=== PATIENT | female | born 1930 | race American Indian/Alaskan Native ===

== ENCOUNTER 2016-06-24 06:16 | Emergency (ER) | payer MEDICARE, OTHER ==
[2016-06-24] MEDS ORDERED: ULTRAM ONE (06:44)
[2016-06-24 06:48] VITALS: BP 122/63
[2016-06-24] MEDS ORDERED: ULTRAM PO ONE (06:54)
[2016-06-24] MEDS ORDERED: TYLENOL PO ONE (07:32)
--- NOTE | 2016-06-24 07:35 | Emergency Department Report ---
ED ENT HPI - General Chief complaint: Dental/Oral Stated complaint: R EAR PAIN Time Seen by Provider: 06/24/16 07:20 Source: patient, EMS Mode of arrival: Stretcher Limitations: No Limitations - History of Present Illness Initial comments: 86F multiple medical problems hypertension, anxiety presents with complaint of right ear pain since yesterday. Patient complaining of sensation of pressure in the ear. Denies any fever chills nausea or vomiting. Because patient is elderly and stated she could not get a ride she called EMS to come to hospital for treatment. 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 States she has not put anything inside of her ear lately. MD complaint: ear pain Onset/Timin -: days(s) Location: R ear Severity: moderate Severity scale (0 -10): 7 Quality: aching - Related Data Home Medications Medication Instructions Recorded Confirmed Last Taken ALPRAZolam [Xanax TAB] 1 mg PO BID 08/19/14 02/06/16 Unknown Latanoprost 0.005% [Xalatan 0.005%] 1 drop OP QPM 08/19/14 02/06/16 Unknown Levothyroxine [Synthroid] 125 mcg PO QAM 08/19/14 02/06/16 Unknown Lisinopril [Zestril] 10 mg PO QDAY 08/19/14 02/06/16 Unknown Pantoprazole [Protonix] 40 mg PO QDAY 08/19/14 02/06/16 Unknown Sennosides [Senna Laxative] 8.6 mg PO QDAY 08/19/14 02/06/16 Unknown Simvastatin 20 mg PO QHS 08/19/14 02/06/16 Unknown traMADol [Ultram] 50 mg PO Q8HR PRN 08/19/14 02/06/16 Unknown Baclofen [Lioresal] 10 mg PO BID 02/06/16 02/06/16 02/05/16 1000 HYDROcodone/APAP 10-325 [[place] 1 each PO Q6HR PRN 02/06/16 02/06/16 02/05/16 10: 00 10/325] Previous Rx's Medication Instructions Recorded Last Taken Type Ketorolac [Toradol] 10 mg PO Q6H PRN #12 tablet 08/19/14 Unknown Rx Meclizine [Antivert] 25 mg PO TID PRN #30 tablet 08/19/14 Unknown Rx Acetaminophen [Acetaminophen TAB] 500 mg PO Q6HR PRN #25 tablet 06/24/16 Unknown Rx Amoxicillin [Amoxicillin TAB] 875 mg PO BID #14 tablet 06/24/16 Unknown Rx Neomy/Polymyx B/Hc (Otic) Soln 4 drops OTIC TID #1 bottle 06/24/16 Unknown Rx [Cortisporin (Otic) Soln] traMADol [Ultram] 50 mg PO Q6HR PRN #10 tablet 06/24/16 Unknown Rx Allergies Allergy/AdvReac Type Severity Reaction Status Date / Time codeine Allergy Vomiting Verified 04/11/14 05:57 ED Dental HPI - General Chief complaint: Dental/Oral Stated complaint: R EAR PAIN Time Seen by Provider: 06/24/16 07:20 Source: patient, EMS Mode of arrival: Stretcher Limitations: No Limitations - Related Data Home Medications Medication Instructions Recorded Confirmed Last Taken ALPRAZolam [Xanax TAB] 1 mg PO BID 08/19/14 02/06/16 Unknown Latanoprost 0.005% [Xalatan 0.005%] 1 drop OP QPM 08/19/14 02/06/16 Unknown Levothyroxine [Synthroid] 125 mcg PO QAM 08/19/14 02/06/16 Unknown Lisinopril [Zestril] 10 mg PO QDAY 08/19/14 02/06/16 Unknown Pantoprazole [Protonix] 40 mg PO QDAY 08/19/14 02/06/16 Unknown Sennosides [Senna Laxative] 8.6 mg PO QDAY 08/19/14 02/06/16 Unknown Simvastatin 20 mg PO QHS 08/19/14 02/06/16 Unknown traMADol [Ultram] 50 mg PO Q8HR PRN 08/19/14 02/06/16 Unknown Baclofen [Lioresal] 10 mg PO BID 02/06/16 02/06/16 02/05/16 1000 HYDROcodone/APAP 10-325 [[place] 1 each PO Q6HR PRN 02/06/16 02/06/16 02/05/16 10: 00 10/325] Previous Rx's Medication Instructions Recorded Last Taken Type Ketorolac [Toradol] 10 mg PO Q6H PRN #12 tablet 08/19/14 Unknown Rx Meclizine [Antivert] 25 mg PO TID PRN #30 tablet 08/19/14 Unknown Rx Acetaminophen [Acetaminophen TAB] 500 mg PO Q6HR PRN #25 tablet 06/24/16 Unknown Rx Amoxicillin [Amoxicillin TAB] 875 mg PO BID #14 tablet 06/24/16 Unknown Rx Neomy/Polymyx B/Hc (Otic) Soln 4 drops OTIC TID #1 bottle 06/24/16 Unknown Rx [Cortisporin (Otic) Soln] traMADol [Ultram] 50 mg PO Q6HR PRN #10 tablet 06/24/16 Unknown Rx Allergies Allergy/AdvReac Type Severity Reaction Status Date / Time codeine Allergy Vomiting Verified 04/11/14 05:57 ED Review of Systems ROS: Stated complaint: R EAR PAIN Other details as noted in HPI ENT: ear pain (2 days. Pain) ED Past Medical Hx - Past Medical History Previous Medical History?: Yes Hx Hypertension: Yes Hx Renal Disease: Yes (renal insufficiency) Hx Arthritis: Yes Additional medical history: glucoma. TMJ pain - Surgical History Past Surgical History?: Yes Additional Surgical History: HIATAL HERNIA, BILATERAL KNEE SURGERY - Social History Smoking Status: Never Smoker Substance Use Type: None - Medications Home Medications: Home Medications Medication Instructions Recorded Confirmed Last Taken Type ALPRAZolam [Xanax TAB] 1 mg PO BID 08/19/14 02/06/16 Unknown History Ketorolac [Toradol] 10 mg PO Q6H PRN #12 tablet 08/19/14 02/06/16 Unknown Rx Latanoprost 0.005% [Xalatan 0.005%] 1 drop OP QPM 08/19/14 02/06/16 Unknown History Levothyroxine [Synthroid] 125 mcg PO QAM 08/19/14 02/06/16 Unknown History Lisinopril [Zestril] 10 mg PO QDAY 08/19/14 02/06/16 Unknown History Meclizine [Antivert] 25 mg PO TID PRN #30 tablet 08/19/14 02/06/16 Unknown Rx Pantoprazole [Protonix] 40 mg PO QDAY 08/19/14 02/06/16 Unknown History Sennosides [Senna Laxative] 8.6 mg PO QDAY 08/19/14 02/06/16 Unknown History Simvastatin 20 mg PO QHS 08/19/14 02/06/16 Unknown History traMADol [Ultram] 50 mg PO Q8HR PRN 08/19/14 02/06/16 Unknown History Baclofen [Lioresal] 10 mg PO BID 02/06/16 02/06/16 02/05/16 History 1000 HYDROcodone/APAP 10-325 [[place] 1 each PO Q6HR PRN 02/06/16 02/06/16 02/05/16 10: 00 History 10/325] Acetaminophen [Acetaminophen TAB] 500 mg PO Q6HR PRN #25 tablet 06/24/16 Unknown Rx Amoxicillin [Amoxicillin TAB] 875 mg PO BID #14 tablet 06/24/16 Unknown Rx Neomy/Polymyx B/Hc (Otic) Soln 4 drops OTIC TID #1 bottle 06/24/16 Unknown Rx [Cortisporin (Otic) Soln] traMADol [Ultram] 50 mg PO Q6HR PRN #10 tablet 06/24/16 Unknown Rx ED Physical Exam - General Limitations: No Limitations General appearance: alert, in no apparent distress - Head Head exam: Present: atraumatic, normocephalic - Eye Eye exam: Present: normal appearance, PERRL, EOMI - ENT ENT exam: Present: mucous membranes moist, other (right tympanic membrane bulging, injected, no visible effusion behind it. Tympanic membrane intact and no perforations, no foreign bodies minor amount of dried wax in the canal, minor external canal erythema. No pus. Hearing intact, no reproducible TMJ tenderness on clinical palpation. No mastoid tenderness bilaterally on deep palpation either) - Neck Neck exam: Present: normal inspection - Respiratory Respiratory exam: Present: normal lung sounds bilaterally. Absent: respiratory distress - Cardiovascular Cardiovascular Exam: Present: regular rate, normal rhythm. Absent: systolic murmur, diastolic murmur, rubs, gallop - GI/Abdominal GI/Abdominal exam: Present: soft, normal bowel sounds - Extremities Exam Extremities exam: Present: normal inspection - Back Exam Back exam: Present: normal inspection - Neurological Exam Neurological exam: Present: alert, oriented X3 - Psychiatric Psychiatric exam: Present: normal affect, normal mood - Skin Skin exam: Present: warm, dry, intact, normal color. Absent: rash ED Course Vital Signs 06/24/16 06:47 Temperature 98.1 F Pulse Rate 97 H Respiratory 20 Rate Blood Pressure 122/63 [Left] O2 Sat by Pulse 97 Oximetry ED Medical Decision Making - Medical Decision Making A/P: Acute otitis media right ear 1-Tylenol 500 mg when necessary, Ultram for severe pain PRN, amoxicillin 875 twice a day 7days 2- for relief Corticosporin eardrops 3- follow-up with primary care doctor Critical care attestation.: If time is entered above; I have spent that time in minutes in the direct care of this critically ill patient, excluding procedure time. ED Disposition Clinical Impression: Earache on right Acute otitis media Qualifiers: Laterality: right Recurrence: recurrent Spontaneous tympanic membrane rupture: without spontaneous rupture Disposition: DISCHARGED TO HOME OR SELFCARE Is pt being admited?: No Does the pt Need Aspirin: No Condition: Stable Instructions: Earache (ED), Anesthetics (Into the ear), Otitis Media (ED) Prescriptions: Acetaminophen [Acetaminophen TAB] 500 mg PO Q6HR PRN #25 tablet PRN Reason: Pain Amoxicillin [Amoxicillin TAB] 875 mg PO BID #14 tablet Neomy/Polymyx B/Hc (Otic) Soln [Cortisporin (Otic) Soln] 4 drops OTIC TID #1 bottle traMADol [Ultram] 50 mg PO Q6HR PRN #10 tablet PRN Reason: Pain Referrals: PRIMARY CARE, [Primary Care Provider] - 3-5 Days RU GOMEZ MD [Staff Physician] - 3-5 Days Time of Disposition: 07:48
[2016-06-24] MEDS ORDERED: CORTISPORIN AU SCH (08:30)
== END 2016-06-24 08:15 | disposition home or self-care (01) ==
LOC: ED 06:16
DX: H66.91 Otitis media, unspecified, right ear (principal); I10 Essential (primary) hypertension; M19.90 Unspecified osteoarthritis, unspecified site; H40.9 Unspecified glaucoma; N28.9 Disorder of kidney and ureter, unspecified; Z88.6 Allergy status to analgesic agent
CPT/HCPCS: 99283

== ENCOUNTER 2016-06-26 00:33 | Emergency (ER) | payer MEDICARE, OTHER ==
[2016-06-26 00:52] VITALS: BP 153/74
[2016-06-26] MEDS ORDERED: TORADOL IM ONE (02:01)
--- NOTE | 2016-06-26 03:17 | Emergency Department Report ---
HPI - General Chief Complaint: Earache Time Seen by Provider: 06/26/16 01:58 - HPI HPI: 86 year old femalewith multiple medical problems hypertension, anxiety presents with complaint of right ear pain x 3 days. Patient complaining of sensation of pressure in the ear. Denies any fever chills nausea or vomiting. Patient was seen here yesterday and was prescribed Tramadol, Amoxicillin and Neomycin/Polymyx B otic drops. Patient denies symptomatic relief. 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 States she is compliant with antibiotic use. Denies fever, chills, nausea, vomiting, chest pain, shortness of breath, abdominal pain. ED Past Medical Hx - Past Medical History Previous Medical History?: Yes Hx Hypertension: Yes Hx Renal Disease: Yes (renal insufficiency) Hx Arthritis: Yes Additional medical history: glucoma. TMJ pain - Surgical History Past Surgical History?: Yes Additional Surgical History: HIATAL HERNIA, BILATERAL KNEE SURGERY - Social History Smoking Status: Never Smoker Substance Use Type: None - Medications Home Medications: Home Medications Medication Instructions Recorded Confirmed Last Taken Type ALPRAZolam [Xanax TAB] 1 mg PO BID 08/19/14 06/26/16 Unknown History Latanoprost 0.005% [Xalatan 0.005%] 1 drop OP QPM 08/19/14 06/26/16 Unknown History Levothyroxine [Synthroid] 125 mcg PO QAM 08/19/14 06/26/16 Unknown History Pantoprazole [Protonix] 40 mg PO QDAY 08/19/14 06/26/16 Unknown History Sennosides [Senna Laxative] 8.6 mg PO QDAY 08/19/14 06/26/16 Unknown History Simvastatin 20 mg PO QHS 08/19/14 06/26/16 Unknown History traMADol [Ultram] 50 mg PO Q8HR PRN 08/19/14 06/26/16 Unknown History HYDROcodone/APAP 10-325 [[place] 1 each PO Q6HR PRN 02/06/16 06/26/16 02/05/16 10: 00 History 10/325] Acetaminophen [Acetaminophen TAB] 500 mg PO Q6HR PRN #25 tablet 06/24/16 Unknown Rx Ketorolac [Toradol] 10 mg PO Q6H PRN #20 tablet 06/26/16 Unknown Rx Losartan [Cozaar] 12.5 mg PO QDAY 06/26/16 06/26/16 Unknown History ED Review of Systems ROS: Stated complaint: RT EAR PAIN Other details as noted in HPI Constitutional: denies: chills, fever, malaise Eyes: denies: eye pain ENT: ear pain. denies: throat pain, congestion Respiratory: denies: cough, shortness of breath, wheezing Cardiovascular: denies: chest pain, palpitations Endocrine: no symptoms reported Gastrointestinal: denies: abdominal pain, nausea, vomiting Skin: denies: rash Neurological: denies: headache, weakness, numbness, paresthesias Physical Exam - Physical Exam Vital Signs: Vital Signs 06/26/16 06/26/16 00:45 02:19 Temperature 98.3 F Pulse Rate 97 H Respiratory 20 20 Rate Blood Pressure 153/74 Blood Pressure 153/74 [Right] O2 Sat by Pulse 98 Oximetry Physical Exam: GENERAL: The patient is well-developed and well-nourished. Patient is in NAD. HEAD: Normocephalic. Atraumatic. No tenderness to palpation of the TM joint. EYES: PERRL. EARS: Left External auditory canals and tympanic membranes clear. Mildly erythematous right external auditory canal with clear tympanic membrane. Negative tug test. No tenderness to palpation of the mastoid region. NOSE: Normal nasal mucosa with no nasal discharge. THROAT: No erythema, swelling or exudates. NECK: Supple, nontender, without lymphadenopathy. CHEST/LUNGS: Clear to auscultation throughout. HEART/CARDIOVASCULAR: Regular rate and rhythm. No murmurs, rubs or gallops. ABDOMEN: Abdomen is soft, nontender. Bowel sounds normoactive. No guarding or rebound tenderness. EXTREMITIES: Peripheral pulses intact. Capillary refill less than 2 seconds. ED Course Vital Signs 06/26/16 06/26/16 00:45 02:19 Temperature 98.3 F Pulse Rate 97 H Respiratory 20 20 Rate Blood Pressure 153/74 Blood Pressure 153/74 [Right] O2 Sat by Pulse 98 Oximetry ED Medical Decision Making - Lab Data Vital Signs 06/26/16 06/26/16 00:45 02:19 Temperature 98.3 F Pulse Rate 97 H Respiratory 20 20 Rate Blood Pressure 153/74 Blood Pressure 153/74 [Right] O2 Sat by Pulse 98 Oximetry - Medical Decision Making 86-year-old female presents today with ear pain 3 days. Patient was seen here yesterday and states her antibiotics are not working. Explained to patient that the medication takes time and she is recommended to continue her antibiotic use. Patient was given Toradol shot and reported symptomatic relief. Patient is in no acute distress at this time. She will be discharged home and is encouraged to follow up with a primary care provider. She will be sent home on Toradol and is encouraged to return to the emergency room for any worsening symptoms. Critical care attestation.: If time is entered above; I have spent that time in minutes in the direct care of this critically ill patient, excluding procedure time. ED Disposition Clinical Impression: Earache on right Disposition: DISCHARGED TO HOME OR SELFCARE Is pt being admited?: No Does the pt Need Aspirin: No Condition: Stable Instructions: Earache (ED), Otitis Externa (ED), Otitis Media (ED) Additional Instructions: Follow-up with primary care provider. Return to the emergency department if symptoms worsen. Prescriptions: Ketorolac [Toradol] 10 mg PO Q6H PRN #20 tablet PRN Reason: Pain Referrals: PRIMARY CAREMD [Primary Care Provider] - 3-5 Days RU GOMEZ MD [Staff Physician] - 3-5 Days Forms: Work/School Release Form(ED) Time of Disposition: 03:19
== END 2016-06-26 03:32 | disposition home or self-care (01) ==
LOC: ED 00:33
DX: H92.01 Otalgia, right ear (principal); I10 Essential (primary) hypertension; M19.90 Unspecified osteoarthritis, unspecified site; N28.9 Disorder of kidney and ureter, unspecified
CPT/HCPCS: 96372; 99282; J1885

== ENCOUNTER 2016-10-26 06:21 | Day surgery (SDC) | payer MEDICARE, OTHER ==
[~2016-10-26 06:21] MED LIST: TETRACAINE 0.5% OD PRN
[2016-10-26] MEDS ORDERED: XYLOCAINE MPF 2% ONE (06:30)
[2016-10-26] MEDS: MYDRIACYL OD SCH ×3 (07:30→07:40)
[2016-10-26] MEDS: AK-Dilate OD SCH ×3 (07:30→07:40)
[2016-10-26] MEDS: VIGAMOX OD SCH ×3 (07:30→07:40)
--- NOTE | 2016-10-26 07:37 | Anesthesia Day of Surgery ---
Anesthesia Day of Surgery - Day of Surgery Patient Examined: Yes Patient H&P Reviewed: Yes Patient is NPO: Yes
--- NOTE | 2016-10-26 07:37 | Anesthesia Consultation ---
Anesthesia Consult and Med Hx Date of service: 10/26/16 - Airway Anesthetic Teeth Evaluation: Good, Dentures (upper and lower) ROM Head & Neck: Adequate Mental/Hyoid Distance: Adequate Mallampati Class: Class II Intubation Access Assessment: Probably Good - Pulmonary Exam CTA: Yes - Cardiac Exam Cardiac Exam: RRR - Pre-Operative Health Status ASA Pre-Surgery Classification: ASA3 Proposed Anesthetic Plan: MAC - Cardiovascular System Hx Hypertension: Yes (x 10 yrs) - Central Nervous System Hx Psychiatric Problems: Yes - Endocrine Hx Renal Disease: Yes (renal insufficiency) - Other Systems Hx Cancer: No
[2016-10-26] MEDS ORDERED: SUBLIMAZE ONE (07:51)
[2016-10-26] MEDS ORDERED: VERSED ONE (07:51)
[2016-10-26] MEDS ORDERED: NACL P/F VIAL (10 ML) 10 ML ONE (08:22)
[2016-10-26] MEDS ORDERED: DIPRIVAN 10 MG/ML IV ONE (08:33)
--- NOTE | 2016-10-26 09:08 | Operative Report ---
Operative Report Operative Report: PATIENT'S NAME: DATE OF : DATE OF SURGERY: 10/26/2016 PREOPERATIVE DIAGNOSIS: Cataract right eye POSTOPERATIVE DIAGNOSIS: Same OPERATIVE PROCEDURE: Phacoemulsification with intraocular lens implantation, right eye SURGEON: Carolyn Pride M.D. PANEL RAISER OPERATOR SURGEON: Lizzette Lens: [id number] 22.0 D ANESTHESIA: Monitored anesthesia care in combination with topical and intracameral anesthesia because of the established specific risk of reflux, arrhythmias, or anxiety attacks associated with ocular manipulation, as well as the difficulty of the suction roller to manage such potentially catastrophic events while simultaneously attempting to complete the surgical procedure and was deemed necessary for the patient's safety to have an Car Usher present during the procedure whenever possible. An Car Usher was utilized to regulate the intravenous sedation of the patient so the patient was cooperative yet not asleep in order for the patient to successfully maintain fixation of the eye on the operating light of the microscope. COMPLICATIONS: No surgical complications No blood loss. ALLERGIES: Codeine PROGNOSIS: Excellent INDICATIONS FOR SURGERY: The patient is undergoing surgery in the hopes of eliminating or improving these visual difficulties. PROCEDURE: After arriving at the surgery center, the patient was given topical anesthetic and dilating drops, as noted in the record. The patient was then taken into the operating room and given more anesthetic drops. The eyelids , lashes, and lid margins were scrubbed with Betadine solution, and the patient was draped. The Nurse Car Usher administered IV sedation and monitored the patient during the procedure. The eye was then fixated with a 0.12, and a stab incision was made in the peripheral clear cornea into the anterior chamber. This was made on my left side. Viscoelastic was next used to fill the anterior chamber. The eye was once again fixated with the 0.12 forceps and a keratome was used make an incision in clear cornea peripherally on my right hand side temporally. The capsule forceps were used to open the central anterior capsule and then make a continuous round capsulotomy. Hydrodissection was carried out utilizing a cannula and balanced salt solution to delineate the cortical material from the capsule and the nucleus from the cortical material. The phaco tip was introduced into the eye and used to remove the anterior cortical material in the area of the capsulotomy. Then the phaco tip was buried into the nucleus, and a chopping instrument was introduced into the eye and used to provide countertraction in the nucleus between this instrument and the phaco tip fracturing the nucleus. This procedure was repeated multiple times, providing multiple small segments of the lens, and then the phaco tip was used to remove each of these segments. An I/A tip was then used to remove the remaining cortex. The anterior chamber was refilled with viscoelastic. An one-piece, acrylic intraocular lens was then placed into an inserting cartridge. The tip of the inserting cartridge was introduced into the keratome incision and into the anterior chamber. The implant was gently advanced through the cartridge and into the eye, where it unfolded, and both haptics were placed in the capsular bag, where it centered nicely and appeared to be well fixated. After placement of the intraocular lens, the I~and~A handpiece was placed back into the eye and used to remove the viscoelastic, including viscoelastic that was behind the optic of the intraocular lens. The anterior chamber was then filled with balanced salt solution, and hydration of the wound was used to cause swelling of the wound and more appropriate watertight closure. When the wound was found to be firm, the patient was asked to comment on how bright the light was. If there was no light perception at all or if the light was substantially dimmer than during the rest of the surgery, the amount of fluid in the eye was decompressed to lower the intraocular pressure until the patient could see the bright light again. This was done to avoid any damage or decreased blood flow to the optic nerve. MEDICATIONS APPLIED AT END OF SURGERY: One drop of Pred Forte and Vigamox The patient was given a shield to wear at night and was instructed not to rub or push on the eye. DISCHARGE SUMMARY: The patient was released in stable condition. The patient and those with the patient were given a written sheet of postoperative instructions and counseling on any abnormal laboratory studies. The patient is to see us tomorrow for follow-up in the office and is to call immediately for any difficulties. Carolyn Pride M.D. Date
--- NOTE | 2016-10-26 09:10 | Short Stay Summary ---
Short Stay Documentation Date of service: 10/26/16 - History H&P: obtained from office - Allergies and Medications Current Medications: Allergies codeine Adverse Reaction (Verified 10/24/16 15:23) Vomiting Home Medications Medication Instructions Recorded Confirmed Last Taken Type ALPRAZolam [Xanax TAB] 1 mg PO BID 08/19/14 06/26/16 Unknown History Latanoprost 0.005% [Xalatan 0.005%] 1 drop OP QPM 08/19/14 06/26/16 Unknown History Levothyroxine [Synthroid] 125 mcg PO QAM 08/19/14 06/26/16 Unknown History Pantoprazole [Protonix] 40 mg PO QDAY 08/19/14 06/26/16 Unknown History Sennosides [Senna Laxative] 8.6 mg PO QDAY 08/19/14 06/26/16 Unknown History Simvastatin 20 mg PO QHS 08/19/14 06/26/16 Unknown History HYDROcodone/APAP 10-325 [[place] 1 each PO Q6HR PRN 02/06/16 06/26/16 02/05/16 10: 00 History 10/325] Acetaminophen [Acetaminophen TAB] 500 mg PO Q6HR PRN #25 tablet 06/24/16 Unknown Rx Ketorolac [Toradol] 10 mg PO Q6H PRN #20 tablet 06/26/16 Unknown Rx Losartan [Cozaar] 12.5 mg PO QDAY 06/26/16 06/26/16 Unknown History Ondansetron [Zofran Odt] 4 mg PO Q8HR #20 tab.rapdis 08/03/16 Unknown Rx traMADol [Ultram 50 MG tab] 50 mg PO Q8HR PRN #20 tablet 08/03/16 Unknown Rx Active Medications Moxifloxacin HCl (Vigamox) 1 drops OD Q5MIN [facility] Stop: 10/26/16 18:00 Last Admin: 10/26/16 07:40 Dose: 1 drops Phenylephrine HCl (Ak-Dilate) 1 drops OD Q5MIN [facility] Stop: 10/26/16 18:00 Last Admin: 10/26/16 07:40 Dose: 1 drops Prednisolone Acetate (Pred Forte 1%) 1 drops OD QID [facility] Tetracaine HCl (Tetracaine 0.5%) 1 drops OD Q5M PRN PRN Reason: Analgesia Last Admin: 10/26/16 07:30 Dose: 1 drops Tropicamide (Mydriacyl) 1 drops OD Q5MIN [facility] Stop: 10/26/16 18:00 Last Admin: 10/26/16 07:40 Dose: 1 drops - Brief post op/procedure progress note Date of procedure: 10/26/16 Pre-op diagnosis: right cataract Post-op diagnosis: same Procedure: Physical musculature with intraocular lens insertion right eye Anesthesia: MAC Surgeon: MANUELA KAUFMAN Estimated blood loss: none Pathology: none Condition: stable - Disposition Condition at discharge: Good Disposition: DISCHARGED TO HOME OR SELFCARE - Discharge Diagnoses (1) Cataract Status: Resolved Qualifiers: Cataract type: age-related Age-related cataract type: combined forms Infantile/juvenile cataract type: I Traumatic cataract type: T Complicated cataract type: C Secondary cataract type: S Laterality: right Qualified Code(s): 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
--- NOTE | 2016-10-26 09:27 | Post Anesthesia Evaluation ---
- Post Anesthesia Evaluation Patient Participated: Yes Airway Patent: Yes Stable Respiratory Function: Yes Nausea/Vomiting: No Temp > 96.8F: Yes Pain Manageable: Yes Adequeate Hydration: Yes Anesthesia Complications: No Block Receding Appropriately: Not Applicable Patient on Ventilator: No
[2016-10-26] MEDS: PRED FORTE 1% OD SCH ×2 (09:30→10:20)
[2016-10-26 13:08] VITALS: BP 148/75
== END 2016-10-26 10:00 | disposition home or self-care (01) ==
LOC: OR 06:21
DX: H26.9 Unspecified cataract (principal); H40.9 Unspecified glaucoma; M19.90 Unspecified osteoarthritis, unspecified site; F41.9 Anxiety disorder, unspecified; I10 Essential (primary) hypertension
CPT/HCPCS: 66984; J2250; J2704; J3010; V2632

== ENCOUNTER 2017-02-07 13:38 | Emergency (ER) | payer MEDICARE, OTHER ==
[2017-02-07] MEDS ORDERED: TORADOL IM ONE (14:47)
[2017-02-07] MEDS ORDERED: MORPHINE IM ONE (14:49)
--- NOTE | 2017-02-07 17:42 | Emergency Department Report ---
ED General Adult HPI - General Chief complaint: Pain General Stated complaint: TMJ FACIAL PAIN Time Seen by Provider: 02/07/17 16:16 Source: EMS Mode of arrival: Stretcher Limitations: No Limitations - History of Present Illness Initial comments: Patient is a 86-year-old female here with complaint of bilateral jaw pain. Patient is known history of TMJ and is having significant pain. She has a S2 is following her for this and is created a brace for her but she is still having worsening pain. No fevers chills nausea vomiting. She states she ran out of her pain medications. -: Gradual Location: head, face Radiation: neck Severity scale (0 -10): 10 Quality: aching, sharp Consistency: constant Associated Symptoms: denies: denies other symptoms, confusion, chest pain, cough , headaches, malaise, rash, shortness of breath, syncope - Related Data Home Medications Medication Instructions Recorded Confirmed Last Taken ALPRAZolam [Xanax TAB] 1 mg PO BID 08/19/14 02/07/17 10/26/16 02:00 Latanoprost 0.005% [Xalatan 0.005%] 1 drop OP QPM 08/19/14 02/07/17 10/25/16 Levothyroxine [Synthroid] 150 mcg PO QAM 08/19/14 02/07/17 10/25/16 Sennosides [Senna Laxative] 8.6 mg PO QDAY 08/19/14 02/07/17 10/25/16 Simvastatin 20 mg PO QHS 08/19/14 02/07/17 10/25/16 Losartan [Cozaar] 12.5 mg PO QDAY 06/26/16 02/07/17 10/26/16 02:00 Previous Rx's Medication Instructions Recorded Last Taken Type Acetaminophen [Acetaminophen TAB] 500 mg PO Q6HR PRN #25 tablet 06/24/16 Unknown Rx traMADol [Ultram 50 MG tab] 50 mg PO Q8HR PRN #20 tablet 02/07/17 Unknown Rx Allergies Allergy/AdvReac Type Severity Reaction Status Date / Time codeine AdvReac Vomiting Verified 10/24/16 15:23 NSAIDS (Non-Steroidal AdvReac Nausea Verified 02/07/17 15:01 Anti-Inflamma ED Review of Systems ROS: Stated complaint: TMJ FACIAL PAIN Other details as noted in HPI Constitutional: denies: chills, fever Eyes: denies: eye pain, eye discharge ENT: dental pain. denies: ear pain, throat pain, hearing loss, epistaxis, congestion Respiratory: denies: see HPI, cough Cardiovascular: denies: chest pain, palpitations ED Past Medical Hx - Past Medical History Hx Hypertension: Yes (x 10 yrs) Hx Renal Disease: Yes (renal insufficiency) Hx Arthritis: Yes (right arm, previous roseline knees) Hx Headaches / Migraines: Yes (migraines) Hx HIV: No Additional medical history: glucoma, detached retina left eye, elevated cholesterol. TMJ pain,hypothyroidism - Surgical History Additional Surgical History: HIATAL HERNIA, BILATERAL KNEE SURGERY, thyroidectomy,right wrist surgery/FX - Family History Family history: no significant - Social History Smoking Status: Never Smoker Substance Use Type: None - Medications Home Medications: Home Medications Medication Instructions Recorded Confirmed Last Taken Type ALPRAZolam [Xanax TAB] 1 mg PO BID 08/19/14 02/07/17 10/26/16 02:00 History Latanoprost 0.005% [Xalatan 0.005%] 1 drop OP QPM 08/19/14 02/07/17 10/25/16 History Levothyroxine [Synthroid] 150 mcg PO QAM 08/19/14 02/07/17 10/25/16 History Sennosides [Senna Laxative] 8.6 mg PO QDAY 08/19/14 02/07/17 10/25/16 History Simvastatin 20 mg PO QHS 08/19/14 02/07/17 10/25/16 History Acetaminophen [Acetaminophen TAB] 500 mg PO Q6HR PRN #25 tablet 06/24/16 Unknown Rx Losartan [Cozaar] 12.5 mg PO QDAY 06/26/16 02/07/17 10/26/16 02:00 History traMADol [Ultram 50 MG tab] 50 mg PO Q8HR PRN #20 tablet 02/07/17 Unknown Rx ED Physical Exam - General Limitations: No Limitations General appearance: alert, anxious - Head Head exam: Present: atraumatic, normocephalic - Eye Eye exam: Present: normal appearance, PERRL, EOMI - ENT ENT exam: Present: normal exam, normal orophraynx - Expanded ENT Exam Expanded Mouth exam: Present: normal external inspection. Absent: drooling, trismus, muffled voice, tongue normal, tongue elevation, laceration Teeth exam: Present: normal inspection - Neck Neck exam: Absent: normal inspection, tenderness - Respiratory Respiratory exam: Absent: normal lung sounds bilaterally, respiratory distress - Cardiovascular Cardiovascular Exam: Present: regular rate, normal rhythm - Extremities Exam Extremities exam: Present: normal inspection, full ROM ED Course Vital Signs 02/07/17 02/07/17 02/07/17 14:09 14:23 14:59 Temperature 99.9 F H Pulse Rate 100 H Respiratory 18 17 18 Rate Blood Pressure 160/98 [Left] O2 Sat by Pulse 100 100 Oximetry ED Medical Decision Making - Medical Decision Making Patient with TMJ pain. Out of pain medications at home. Given a dose of Toradol and morphine here in the emergency department with some relief. Plan to discharge home on continued tramadol. Critical care attestation.: If time is entered above; I have spent that time in minutes in the direct care of this critically ill patient, excluding procedure time. ED Disposition Clinical Impression: Anxiety, TMJ (temporomandibular joint syndrome) Disposition: - TO HOME OR SELFCARE Is pt being admited?: No Condition: Stable Instructions: Temporomandibular Disorder (ED) Additional Instructions: Please follow up with your dentist to adjust your TMJ brace. Prescriptions: traMADol [Ultram 50 MG tab] 50 mg PO Q8HR PRN #20 tablet PRN Reason: Pain Referrals: PRIMARY CARE, [Primary Care Provider] - 3-5 Days
[2017-02-07 18:02] VITALS: BP 130/87
== END 2017-02-07 18:02 | disposition home or self-care (01) ==
LOC: ED 13:38
DX: M26.603 Bilateral temporomandibular joint disorder, unspecified (principal); F41.9 Anxiety disorder, unspecified; I12.9 Hypertensive chronic kidney disease with stage 1 through stage 4 chronic kidney disease, or unspecified chronic kidney disease; N18.9 Chronic kidney disease, unspecified; M19.90 Unspecified osteoarthritis, unspecified site; G43.909 Migraine, unspecified, not intractable, without status migrainosus; Z88.6 Allergy status to analgesic agent; Z88.8 Allergy status to other drugs, medicaments and biological substances
CPT/HCPCS: 96372; 99283; J1885; J2270

== ENCOUNTER 2017-06-11 20:33 | Emergency (ER) | payer MEDICARE, OTHER ==
[2017-06-11 20:40] VITALS: BP 107/56
[2017-06-11] MEDS ORDERED: TYLENOL PO ONE (20:47)
--- NOTE | 2017-06-11 21:28 | Emergency Department Report ---
ED Recheck HPI - General Chief Complaint: Pain General Stated Complaint: JAW PAIN Time Seen by Provider: 06/11/17 20:46 Source: patient Mode of arrival: Ambulatory Limitations: No Limitations - History of Present Illness Initial Comments: This is a 87-year-old female nontoxic, well nourished in appearance, no acute signs of distress presents to the ED for medication refill. Patient stated she takes Tramadol and Xanax for pain and stated that her PCP can not refill her medications and gave her a refill to pain management but due to the holidays patient stated patient was has not. Patient denies any new symptoms. Denies any chest pain, shortness of breathe, fever, chills, headache, nausea, vomiting, back pain. Patient states allergies to codeine but stated take Tramadol with no complications. MD Complaint: medication refill request -: year(s) Symptoms Since Prior Visit: no new symptoms Associated Symptoms: none. denies: fever, chills, chest pain, shortness of breath, rash, malaise, nasuea, abdominal pain - Related Data Home Medications Medication Instructions Recorded Confirmed Last Taken ALPRAZolam [Xanax TAB] 1 mg PO BID 08/19/14 02/07/17 10/26/16 02:00 Latanoprost 0.005% [Xalatan 0.005%] 1 drop OP QPM 08/19/14 02/07/17 10/25/16 Levothyroxine [Synthroid] 150 mcg PO QAM 08/19/14 02/07/17 10/25/16 Sennosides [Senna Laxative] 8.6 mg PO QDAY 08/19/14 02/07/17 10/25/16 Simvastatin 20 mg PO QHS 08/19/14 02/07/17 10/25/16 Losartan [Cozaar] 12.5 mg PO QDAY 06/26/16 02/07/17 10/26/16 02:00 Previous Rx's Medication Instructions Recorded Last Taken Type Acetaminophen [Acetaminophen TAB] 500 mg PO Q6HR PRN #25 tablet 06/24/16 Unknown Rx traMADol [Ultram 50 MG tab] 50 mg PO Q8HR PRN #20 tablet 02/07/17 Unknown Rx ALPRAZolam [Xanax TAB] 1 mg PO BID PRN #4 tab 06/11/17 Unknown Rx traMADol [Ultram 50 MG tab] 50 mg PO Q8H #6 tablet 06/11/17 Unknown Rx Allergies Allergy/AdvReac Type Severity Reaction Status Date / Time codeine AdvReac Vomiting Verified 10/24/16 15:23 NSAIDS (Non-Steroidal AdvReac Nausea Verified 02/07/17 15:01 Anti-Inflamma ED Review of Systems ROS: Stated complaint: JAW PAIN Other details as noted in HPI Constitutional: denies: chills, fever Eyes: denies: eye pain, eye discharge, vision change ENT: denies: ear pain, throat pain Respiratory: denies: cough, shortness of breath, wheezing Cardiovascular: denies: chest pain, palpitations Endocrine: no symptoms reported Gastrointestinal: denies: abdominal pain, nausea, diarrhea Genitourinary: denies: urgency, dysuria, discharge Musculoskeletal: denies: back pain, joint swelling, arthralgia Skin: denies: rash, lesions Neurological: denies: headache, weakness, paresthesias Psychiatric: denies: anxiety, depression Hematological/Lymphatic: denies: easy bleeding, easy bruising ED Past Medical Hx - Past Medical History Hx Hypertension: Yes (x 10 yrs) Hx Renal Disease: Yes (renal insufficiency) Hx Arthritis: Yes (right arm, previous roseline knees) Hx Headaches / Migraines: Yes (migraines) Hx HIV: No Additional medical history: glucoma, detached retina left eye, elevated cholesterol. TMJ pain,hypothyroidism - Surgical History Additional Surgical History: HIATAL HERNIA, BILATERAL KNEE SURGERY, thyroidectomy,right wrist surgery/FX - Social History Smoking Status: Never Smoker Substance Use Type: None - Medications Home Medications: Home Medications Medication Instructions Recorded Confirmed Last Taken Type ALPRAZolam [Xanax TAB] 1 mg PO BID 08/19/14 02/07/17 10/26/16 02:00 History Latanoprost 0.005% [Xalatan 0.005%] 1 drop OP QPM 08/19/14 02/07/17 10/25/16 History Levothyroxine [Synthroid] 150 mcg PO QAM 08/19/14 02/07/17 10/25/16 History Sennosides [Senna Laxative] 8.6 mg PO QDAY 08/19/14 02/07/17 10/25/16 History Simvastatin 20 mg PO QHS 08/19/14 02/07/17 10/25/16 History Acetaminophen [Acetaminophen TAB] 500 mg PO Q6HR PRN #25 tablet 06/24/16 Unknown Rx Losartan [Cozaar] 12.5 mg PO QDAY 06/26/16 02/07/17 10/26/16 02:00 History traMADol [Ultram 50 MG tab] 50 mg PO Q8HR PRN #20 tablet 02/07/17 Unknown Rx ALPRAZolam [Xanax TAB] 1 mg PO BID PRN #4 tab 06/11/17 Unknown Rx traMADol [Ultram 50 MG tab] 50 mg PO Q8H #6 tablet 06/11/17 Unknown Rx ED Physical Exam - General Limitations: No Limitations General appearance: alert, in no apparent distress - Head Head exam: Present: atraumatic, normocephalic - Eye Eye exam: Present: normal appearance - ENT ENT exam: Present: mucous membranes moist - Neck Neck exam: Present: normal inspection - Respiratory Respiratory exam: Present: normal lung sounds bilaterally. Absent: respiratory distress - Cardiovascular Cardiovascular Exam: Present: regular rate, normal rhythm. Absent: systolic murmur, diastolic murmur, rubs, gallop - GI/Abdominal GI/Abdominal exam: Present: soft, normal bowel sounds - Extremities Exam Extremities exam: Present: normal inspection - Back Exam Back exam: Present: normal inspection - Neurological Exam Neurological exam: Present: alert, oriented X3 - Psychiatric Psychiatric exam: Present: normal affect, normal mood - Skin Skin exam: Present: warm, dry, intact, normal color. Absent: rash ED Course Vital Signs 06/11/17 06/11/17 20:36 21:31 Temperature 98.2 F Pulse Rate 102 H Respiratory 18 18 Rate Blood Pressure 107/56 O2 Sat by Pulse 100 Oximetry - Reevaluation(s) Reevaluation #1: 06/11/17 21:38 Patient is speaking in full sentences with no signs of distress noted. - Consultations Consultation #1: 06/11/17 21:43 Dr. Gonzalez has been consulted about patient history, physical exam, and agrees to the discharge plan of care. ED Recheck MDM - Medical Decision Making This is a 87-year-old female that presents for medication refill. Patient is stable and was examiend by me. Kayla [employer] has been obtained and indicates patient takes Xanax 1mg daily and Toradol 50mg. Patient has been consulted with Dr. Gonzalez and agrees to the discharge plan of care. Patient received Xanax and Toradol for chronic use and not to have withdraws and was instructed not to operate any machinery while taking them. Patient was instructed and refereed to pain management and PCP. At time time of discharge, the patient does not seem toxic or ill in appearance. No acute signs of distress noted. Patient agrees to discharge treatment plan of care. No further questions noted by the patient. Critical care attestation.: If time is entered above; I have spent that time in minutes in the direct care of this critically ill patient, excluding procedure time. ED Disposition Clinical Impression: Medication refill Disposition: DC- TO HOME OR SELFCARE Is pt being admited?: No Does the pt Need Aspirin: No Condition: Stable Instructions: Tramadol (By mouth), Alprazolam (By mouth) Additional Instructions: Follow-up with a primary care doctor in 3-5 days or if symptoms worsen and continue return to emergency room as soon as possible. Do not operate any machinery while taking Xanax and Tramadol due to drowsiness Prescriptions: ALPRAZolam [Xanax TAB] 1 mg PO BID PRN #4 tab PRN Reason: Anxiety traMADol [Ultram 50 MG tab] 50 mg PO Q8H #6 tablet Referrals: PRIMARY CARE, [Referring] - 3-5 Days RACHEL URIAS MD [Staff Physician] - 3-5 Days [facility] [Outside] - 3-5 Days [facility] [Outside] - 3-5 Days GINGER DANIELS MD [Referring] - 3-5 Days ANTONIA GOODWIN MD [Staff Physician] - 3-5 Days
== END 2017-06-11 21:57 | disposition home or self-care (01) ==
LOC: ED 20:33
DX: Z76.0 Encounter for issue of repeat prescription (principal); Z88.8 Allergy status to other drugs, medicaments and biological substances; I10 Essential (primary) hypertension; M19.90 Unspecified osteoarthritis, unspecified site; G43.909 Migraine, unspecified, not intractable, without status migrainosus; E78.00 Pure hypercholesterolemia, unspecified; E03.9 Hypothyroidism, unspecified; N28.9 Disorder of kidney and ureter, unspecified; Z88.5 Allergy status to narcotic agent
CPT/HCPCS: 99282

== ENCOUNTER 2017-06-14 11:48 | Emergency (ER) | payer MEDICARE, OTHER ==
[2017-06-14 12:08] VITALS: BP 127/40
== END 2017-06-14 13:06 | disposition left against medical advice (07) ==
LOC: ED 11:48
DX: Z53.21 Procedure and treatment not carried out due to patient leaving prior to being seen by health care provider (principal)

== ENCOUNTER 2017-11-27 12:15 | Emergency (ER) | payer MEDICARE, OTHER ==
[2017-11-27] MEDS ORDERED: PERCOCET 5/325 PO ONE (12:49)
[2017-11-27 13:04] VITALS: BP 154/66
--- NOTE | 2017-11-27 13:07 | Emergency Department Report ---
HPI - General Chief Complaint: Headache Time Seen by Provider: 11/27/17 12:41 - HPI HPI: 87-year-old -[place] female presents to the emergency department via EMS from home with a complaint of a generalized headache appears to be an acute on chronic condition for her. Patient was seen at [facility] a couple days ago and says that she had some blood work done and was given a shot of Toradol and it resolved her headache and she says that she did not have any CT imaging of the head done at that time. She admits that she has been dealing with different headache issues for the past year and a half. The patient currently is in pain management with a doctor pleasure and she has prescriptions of [place] and Xanax for her chronic pain and anxiety issues respectively. She says that she took one of these [place] this morning without any relief. She denies any vision change, slurred speech or any other neurological deficits. ED Past Medical Hx - Past Medical History Hx Hypertension: Yes (x 10 yrs) Hx Renal Disease: Yes (renal insufficiency) Hx Arthritis: Yes (right arm, previous roseline knees) Hx Headaches / Migraines: Yes (migraines) Hx HIV: No Additional medical history: glucoma, detached retina left eye, elevated cholesterol. TMJ pain,hypothyroidism - Surgical History Additional Surgical History: HIATAL HERNIA, BILATERAL KNEE SURGERY, thyroidectomy,right wrist surgery/FX - Social History Smoking Status: Never Smoker Substance Use Type: None - Medications Home Medications: Home Medications Medication Instructions Recorded Confirmed Last Taken Type ALPRAZolam [Xanax TAB] 1 mg PO BID 08/19/14 02/07/17 10/26/16 02:00 History Latanoprost 0.005% [Xalatan 0.005%] 1 drop OP QPM 08/19/14 02/07/17 10/25/16 History Levothyroxine [Synthroid] 150 mcg PO QAM 08/19/14 02/07/17 10/25/16 History Sennosides [Senna Laxative] 8.6 mg PO QDAY 08/19/14 02/07/17 10/25/16 History Simvastatin 20 mg PO QHS 08/19/14 02/07/17 10/25/16 History Acetaminophen [Acetaminophen TAB] 500 mg PO Q6HR PRN #25 tablet 06/24/16 Unknown Rx Losartan [Cozaar] 12.5 mg PO QDAY 06/26/16 02/07/17 10/26/16 02:00 History traMADol [Ultram 50 MG tab] 50 mg PO Q8HR PRN #20 tablet 02/07/17 Unknown Rx ALPRAZolam [Xanax TAB] 1 mg PO BID PRN #4 tab 06/11/17 Unknown Rx traMADol [Ultram 50 MG tab] 50 mg PO Q8H #6 tablet 06/11/17 Unknown Rx ED Review of Systems ROS: Stated complaint: HEADACHE FOR 2 DAYS Other details as noted in HPI Comment: All other systems reviewed and negative Constitutional: denies: chills, fever Eyes: denies: eye pain, eye discharge, vision change ENT: denies: ear pain, throat pain Respiratory: denies: cough, shortness of breath, wheezing Cardiovascular: denies: chest pain, palpitations Gastrointestinal: denies: abdominal pain, nausea, diarrhea Genitourinary: denies: urgency, dysuria, discharge Musculoskeletal: denies: back pain, joint swelling, arthralgia Skin: denies: rash, lesions Neurological: headache. denies: numbness Physical Exam - Physical Exam Vital Signs: Vital Signs 11/27/17 13:04 Temperature 98.4 F Pulse Rate 86 Respiratory 18 Rate Blood Pressure 154/66 [Left] O2 Sat by Pulse 100 Oximetry Physical Exam: GENERAL: The patient is well-developed well-nourished. HENT: Normocephalic. Atraumatic. Patient has moist mucous membranes. EYES: Extraocular motions are intact. Pupils equal reactive to light bilaterally. No nystagmus. NECK: Supple. Trachea is midline. CHEST/LUNGS: Clear to auscultation. There is no respiratory distress noted. HEART/CARDIOVASCULAR: Regular. There is no tachycardia. There is no murmur. ABDOMEN: Abdomen is soft, nontender. Patient has normal bowel sounds. There is no abdominal distention. SKIN: Skin is warm and dry. NEURO: The patient is awake, alert, and oriented. The patient is cooperative. The patient has no focal neurologic deficits. The patient has normal speech. Cranial nerves II through XII grossly intact. MUSCULOSKELETAL: There is no tenderness or deformity. There is no limitation range of motion. There is no evidence of acute injury. ED Course Vital Signs 11/27/17 13:04 Temperature 98.4 F Pulse Rate 86 Respiratory 18 Rate Blood Pressure 154/66 [Left] O2 Sat by Pulse 100 Oximetry ED Medical Decision Making - Lab Data Result diagrams: 11/27/17 13:02 11/27/17 13:02 - Radiology Data Radiology results: report reviewed CT of the head does not show any acute intracranial process including no ischemia, shift, mass, bleeding or skull fracture. - Medical Decision Making Patient presents with a 2 to three-day history of a frontal headache. There is no focal, motor or sensory deficits and her cranial nerves are intact. A CT scan of the head without contrast was done that does not show any bleed, shift, mass or any other acute process. Patient's labs were mostly unremarkable. She did have some mildly elevated potassium level of 5.3 and was given a low dose of Kayexalate to correct this. Vital signs stable throughout her ED course including being afebrile. The patient had said that she has a history of these recurring and/or chronic headaches. For this reason she has been given a referral for neurology. I looked the patient up on the [email or web address] prescription monitoring system and she does have access to [place] and Xanax for her chronic pains and anxiety and goes to a pain management doctor. She was given 1 dose of a pain pill here and upon reevaluation she is feeling improved. Because she took this medication, she is waiting for someone to come and get her and take responsibility for her from the emergency department. She has been encouraged to follow up with her primary care physician and the referred neurologist, but to return to the emergency Department with any worsening of her symptoms or any acute distress. She understands and agrees to the plan. Prior to discharge, the patient was seen ambulatory in the emergency department and appeared stable while doing so. - Differential Diagnosis tension headache, migraine, cluster headache, brain bleed Critical Care Time: No Critical care attestation.: If time is entered above; I have spent that time in minutes in the direct care of this critically ill patient, excluding procedure time. ED Disposition Clinical Impression: Hyperkalemia Hypertension Qualifiers: Hypertension type: essential hypertension Qualified Code(s): I10 - Essential ( primary) hypertension Headache Qualifiers: Headache type: unspecified Headache chronicity pattern: episodic headache Intractability: not intractable Qualified Code(s): R51 - Headache Disposition: DC-01 TO HOME OR SELFCARE Is pt being admited?: No Condition: Stable Instructions: Hyperkalemia (ED), Acute Headache (ED), Hypertension (ED) Additional Instructions: Please follow-up with your primary care physician regarding your headache, slightly elevated potassium level and your elevated blood pressure. Return to the emergency Department with any worsening of your symptoms or any acute distress. Since you mentioned that you have a history of these recurrent headaches, I have given her a referral for a local neurologist, Dr. Costa. Referrals: PRIMARY CARE, [Primary Care Provider] - ABDOUL LUNA MD [Staff Physician] - 3-5 Days Time of Disposition: 15:39
[2017-11-27 13:25] LABS: Basophils % (Auto) 0.3 % (0.0-1.8); Eosinophils # (Auto) 0.2 K/mm3 (0.0-0.4); Eosinophils % (Auto) 3.2 % (0.0-4.3); Hematocrit 28.2 % (30.3-42.9); Hemoglobin 8.8 gm/dl (10.1-14.3); Lymphocytes # (Auto) 1.7 K/mm3 (1.2-5.4); Lymphocytes % (Auto) 34.2 % (13.4-35.0); Mean Corpuscular HGB Conc 31 % (30-34); Mean Corpuscular Volume 78 fl (79-97); Monocytes # (Auto) 0.5 K/mm3 (0.0-0.8); Monocytes % (Auto) 10.6 % (0.0-7.3); Platelet Count 291 K/mm3 (140-440); Red Blood Count 3.63 M/mm3 (3.65-5.03); Red Cell Distribution Width 17.1 % (13.2-15.2)
[2017-11-27 13:26] LABS: Mean Corpuscular Hemoglobin 24 pg (28-32)
[2017-11-27 14:01] LABS: Blood Urea Nitrogen 22 mg/dL (7-17); Calcium 7.8 mg/dL (8.4-10.2); Hemolysis Index 4
[2017-11-27 14:30] LABS: BUN/Creatinine Ratio 24
[2017-11-27 14:35] LABS: Bilirubin,Urine NEG (Negative); Blood,Urine NEG (Negative); Color,Urine Straw (Yellow); Protein,Urine <15 mg/dL mg/dL (Negative); Urobilinogen,Urine < 2.0 mg/dL (<2.0)
--- NOTE | 2017-11-27 14:35 | Cat Scan Report ---
FINAL REPORT PROCEDURE: CT HEAD/BRAIN WO CON TECHNIQUE: Computerized tomography of the head was performed without contrast material. HISTORY: Headache COMPARISON: No prior studies are available for comparison. FINDINGS: Brain: There is no evidence of intracranial hemorrhage. No parenchymal hemorrhage is seen. No mass lesions or mass effect is identified. No abnormal extra-axial fluid collections or masses are seen. Nonspecific scattered ossification of the falx and tentorium are visualized. This is a finding of doubtful significance. There is some decreased density seen in the periventricular white matter without mass effect. This is fairly symmetric and does not exhibit any mass effect consistent with gliosis probably on the basis of microvascular disease or white matter changes of aging. Ventricles: The ventricles, sulcal pattern and fissures are prominent consistent with atrophy. Bones: No evidence of acute fracture. Well-defined dense homogeneous sclerotic nodule visualized right side of the frontal bone anteriorly, lateral aspect right side of the forehead. This has benign characteristics and appears represent a benign osteoma.. Paranasal sinuses: Visualized portions are clear. Mastoid air cells: Visualized portions are clear. IMPRESSION: There is evidence of mild atrophy and gliosis. No acute intracranial abnormalities are seen. Nonspecific calcifications of the falx and tentorium are visualized, this is a finding of doubtful significance. 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 No acute intracranial abnormalities are seen.
[2017-11-27] MEDS ORDERED: KIONEX PO ONE (14:51)
== END 2017-11-27 16:10 | disposition home or self-care (01) ==
LOC: ED 12:15
DX: E87.5 Hyperkalemia (principal); I10 Essential (primary) hypertension; M19.90 Unspecified osteoarthritis, unspecified site; G43.909 Migraine, unspecified, not intractable, without status migrainosus; E78.00 Pure hypercholesterolemia, unspecified; Z90.89 Acquired absence of other organs
CPT/HCPCS: 36415; 70450; 80048; 81001; 85025

== ENCOUNTER 2017-12-23 02:36 | Emergency (ER) | payer MEDICARE, OTHER ==
[2017-12-23] MEDS ORDERED: TYLENOL PO ONE (05:28)
[2017-12-23] MEDS ORDERED: ZOFRAN ODT PO ONE (05:28)
[2017-12-23] MEDS ORDERED: NORCO 10/325 PO ONE (05:28)
--- NOTE | 2017-12-23 06:16 | Emergency Department Report ---
ED ENT HPI - General Chief complaint: Pain General Stated complaint: JAW PAIN Time Seen by Provider: 12/23/17 05:12 Source: patient Mode of arrival: Wheelchair Limitations: No Limitations - History of Present Illness Initial comments: 87-year-old female past medical history chronic TMJ pain, migraines, hypothyroid disorder, hyperlipidemia, hypertension, anxiety, CK D presents with complaint of acute on chronic bilateral jaw pain. Patient states she follows up with pain management. MD complaint: other (jaw pain) -: year(s) Location: other (b/l TMK joints) Severity: moderate Consistency: constant Worsens with: medication - Related Data Home Medications Medication Instructions Recorded Confirmed Last Taken ALPRAZolam [Xanax TAB] 1 mg PO BID 08/19/14 02/07/17 10/26/16 02:00 Latanoprost 0.005% [Xalatan 0.005%] 1 drop OP QPM 08/19/14 02/07/17 10/25/16 Levothyroxine [Synthroid] 150 mcg PO QAM 08/19/14 02/07/17 10/25/16 Sennosides [Senna Laxative] 8.6 mg PO QDAY 08/19/14 02/07/17 10/25/16 Simvastatin 20 mg PO QHS 08/19/14 02/07/17 10/25/16 Losartan [Cozaar] 12.5 mg PO QDAY 06/26/16 02/07/17 10/26/16 02:00 Previous Rx's Medication Instructions Recorded Last Taken Type Acetaminophen [Acetaminophen TAB] 500 mg PO Q6HR PRN #25 tablet 06/24/16 Unknown Rx traMADol [Ultram 50 MG tab] 50 mg PO Q8HR PRN #20 tablet 02/07/17 Unknown Rx ALPRAZolam [Xanax TAB] 1 mg PO BID PRN #4 tab 06/11/17 Unknown Rx traMADol [Ultram 50 MG tab] 50 mg PO Q8H #6 tablet 06/11/17 Unknown Rx Allergies Allergy/AdvReac Type Severity Reaction Status Date / Time codeine AdvReac Vomiting Verified 12/23/17 03:25 NSAIDS (Non-Steroidal AdvReac Nausea Verified 12/23/17 03:25 Anti-Inflamma ED Dental HPI - General Chief complaint: Pain General Stated complaint: JAW PAIN Time Seen by Provider: 12/23/17 05:12 Source: patient Mode of arrival: Wheelchair Limitations: No Limitations - Related Data Home Medications Medication Instructions Recorded Confirmed Last Taken ALPRAZolam [Xanax TAB] 1 mg PO BID 08/19/14 02/07/17 10/26/16 02:00 Latanoprost 0.005% [Xalatan 0.005%] 1 drop OP QPM 08/19/14 02/07/17 10/25/16 Levothyroxine [Synthroid] 150 mcg PO QAM 08/19/14 02/07/17 10/25/16 Sennosides [Senna Laxative] 8.6 mg PO QDAY 08/19/14 02/07/17 10/25/16 Simvastatin 20 mg PO QHS 08/19/14 02/07/17 10/25/16 Losartan [Cozaar] 12.5 mg PO QDAY 06/26/16 02/07/17 10/26/16 02:00 Previous Rx's Medication Instructions Recorded Last Taken Type Acetaminophen [Acetaminophen TAB] 500 mg PO Q6HR PRN #25 tablet 06/24/16 Unknown Rx traMADol [Ultram 50 MG tab] 50 mg PO Q8HR PRN #20 tablet 02/07/17 Unknown Rx ALPRAZolam [Xanax TAB] 1 mg PO BID PRN #4 tab 06/11/17 Unknown Rx traMADol [Ultram 50 MG tab] 50 mg PO Q8H #6 tablet 06/11/17 Unknown Rx Allergies Allergy/AdvReac Type Severity Reaction Status Date / Time codeine AdvReac Vomiting Verified 12/23/17 03:25 NSAIDS (Non-Steroidal AdvReac Nausea Verified 12/23/17 03:25 Anti-Inflamma ED Review of Systems ROS: Stated complaint: JAW PAIN Other details as noted in HPI Constitutional: denies: chills, fever Eyes: denies: eye pain, eye discharge, vision change ENT: as per HPI. denies: ear pain, throat pain Respiratory: denies: cough, shortness of breath, wheezing Cardiovascular: denies: chest pain, palpitations Endocrine: no symptoms reported Gastrointestinal: denies: abdominal pain, nausea, diarrhea Genitourinary: denies: urgency, dysuria, discharge Musculoskeletal: denies: back pain, joint swelling, arthralgia Skin: denies: rash, lesions Neurological: denies: headache, weakness, paresthesias Psychiatric: denies: anxiety, depression Hematological/Lymphatic: denies: easy bleeding, easy bruising ED Past Medical Hx - Past Medical History Hx Hypertension: Yes (x 10 yrs) Hx Renal Disease: Yes (renal insufficiency) Hx Arthritis: Yes (right arm, previous roseline knees) Hx Headaches / Migraines: Yes (migraines) Hx HIV: No Additional medical history: glucoma, detached retina left eye, elevated cholesterol. TMJ pain,hypothyroidism - Surgical History Additional Surgical History: HIATAL HERNIA, BILATERAL KNEE SURGERY, thyroidectomy,right wrist surgery/FX - Social History Smoking Status: Never Smoker Substance Use Type: None - Medications Home Medications: Home Medications Medication Instructions Recorded Confirmed Last Taken Type ALPRAZolam [Xanax TAB] 1 mg PO BID 08/19/14 02/07/17 10/26/16 02:00 History Latanoprost 0.005% [Xalatan 0.005%] 1 drop OP QPM 08/19/14 02/07/17 10/25/16 History Levothyroxine [Synthroid] 150 mcg PO QAM 08/19/14 02/07/17 10/25/16 History Sennosides [Senna Laxative] 8.6 mg PO QDAY 08/19/14 02/07/17 10/25/16 History Simvastatin 20 mg PO QHS 08/19/14 02/07/17 10/25/16 History Acetaminophen [Acetaminophen TAB] 500 mg PO Q6HR PRN #25 tablet 06/24/16 Unknown Rx Losartan [Cozaar] 12.5 mg PO QDAY 06/26/16 02/07/17 10/26/16 02:00 History traMADol [Ultram 50 MG tab] 50 mg PO Q8HR PRN #20 tablet 02/07/17 Unknown Rx ALPRAZolam [Xanax TAB] 1 mg PO BID PRN #4 tab 06/11/17 Unknown Rx traMADol [Ultram 50 MG tab] 50 mg PO Q8H #6 tablet 06/11/17 Unknown Rx ED Physical Exam - General Limitations: No Limitations General appearance: alert, in no apparent distress - Head Head exam: Present: atraumatic, normocephalic - Eye Eye exam: Present: normal appearance, PERRL, EOMI - ENT ENT exam: Present: mucous membranes moist, other - Neck Neck exam: Present: normal inspection - Respiratory Respiratory exam: Present: normal lung sounds bilaterally. Absent: respiratory distress - Cardiovascular Cardiovascular Exam: Present: regular rate, normal rhythm. Absent: systolic murmur, diastolic murmur, rubs, gallop - GI/Abdominal GI/Abdominal exam: Present: soft, normal bowel sounds - Extremities Exam Extremities exam: Present: normal inspection - Back Exam Back exam: Present: normal inspection - Neurological Exam Neurological exam: Present: alert, oriented X3 - Psychiatric Psychiatric exam: Present: normal affect, normal mood - Skin Skin exam: Present: warm, dry, intact, normal color. Absent: rash ED Course Vital Signs 12/23/17 12/23/17 12/23/17 02:46 03:27 05:36 Temperature 98.2 F 98.2 F Pulse Rate 71 69 Respiratory 18 18 16 Rate Blood Pressure 117/51 117/51 Blood Pressure [Left] O2 Sat by Pulse 100 100 Oximetry 12/23/17 12/23/17 12/23/17 06:35 06:36 06:56 Temperature 98.7 F Pulse Rate 71 Respiratory 16 16 16 Rate Blood Pressure Blood Pressure 135/57 [Left] O2 Sat by Pulse 97 Oximetry ED Medical Decision Making - Medical Decision Making A/P: Chronic jaw pain 1-patient states she has history of TMJ syndrome. No signs of acute infection or jaw dislocation on exam 2-patient states that she follows up with primary care and pain management. Advised to continue following up with pain management. Critical care attestation.: If time is entered above; I have spent that time in minutes in the direct care of this critically ill patient, excluding procedure time. ED Disposition Clinical Impression: Chronic jaw pain Disposition: DC-01 TO HOME OR SELFCARE Is pt being admited?: No Does the pt Need Aspirin: No Condition: Stable Instructions: Temporomandibular Disorder (ED) Additional Instructions: Patient received 1 dose of Finger in ED. As per my discussion with patient she wanted this written on her discharge packet. Patient did not receive a prescription for narcotics during my encounter with her. States she plans to follow-up with her primary care and pain management doctor on 12/24 or 12/25. I advised patient she can take [id number] Tylenol but to avoid NSAIDs as she does have a history of chronic kidney disease. I advised her to follow-up with her sole painter to adjust her chronic pain medications for TMJ syndrome. Referrals: ENT [facility] [Provider Group] - 3-5 Days ENT [facility] [Provider Group] - 3-5 Days Time of Disposition: 06:39
[2017-12-23] MEDS ORDERED: NORCO 5/325 PO ONE (06:40)
[2017-12-23 06:57] VITALS: BP 135/57
== END 2017-12-23 06:56 | disposition home or self-care (01) ==
LOC: ED 02:36
DX: G89.29 Other chronic pain (principal); R68.84 Jaw pain; I12.9 Hypertensive chronic kidney disease with stage 1 through stage 4 chronic kidney disease, or unspecified chronic kidney disease; N18.9 Chronic kidney disease, unspecified; M19.90 Unspecified osteoarthritis, unspecified site; E03.9 Hypothyroidism, unspecified; G43.909 Migraine, unspecified, not intractable, without status migrainosus; Z90.89 Acquired absence of other organs; Z88.5 Allergy status to narcotic agent
CPT/HCPCS: 99283; Q0162

== ENCOUNTER 2018-03-05 11:53 | Emergency (ER) | payer MEDICARE, OTHER | END 2018-03-05 14:55 | LOC: ED 11:53 | DX: M79.1 Myalgia (principal); Z53.21 Procedure and treatment not carried out due to patient leaving prior to being seen by health care provider ==